=== PATIENT | female | born 1955 | race Caucasian/White ===

== ENCOUNTER → 2019-07-08 | Outpatient (CLI) | payer MEDICARE, OTHER ==
[~2019-07-08] MED LIST: CATHETER FLUSH 10 ML SYR IV PRN; REGADENOSON 0.4 MG/5 ML SYR (LEXISCAN) IV ONE
[2019-07-08 09:33] VITALS: BP 155/84
[2019-07-08 09:37] VITALS: BP 150/78
--- NOTE | 2019-07-08 15:44 | STRESS TEST ---
DATE OF SERVICE: 07/08/2019 RESTING AND POST REGADENOSON TECHNETIUM-99M TETROFOSMIN SPECT CT IMAGING ORDERING PHYSICIAN: Dr. Barajas. CLINICAL DIAGNOSES: Shortness of breath, coronary artery disease. Baseline images were carried out after injection of 10.1 mCi of technetium-99m Tetrofosmin. This was followed by 0.4 mg regadenoson and 31.2 mCi of technetium-99m Tetrofosmin for stress imaging. The electrocardiogram showed sinus rhythm at baseline and did not change significantly with the regadenoson infusion. The patient noted some jaw discomfort and stomach discomfort and a headache, which resolved in a few minutes after the cessation of the regadenoson infusion. Review of images at rest and following stress does not indicate any significant perfusion defects consistent with significant myocardial ischemia or infarction. Gated images show normal regional wall motion. Global left ventricular systolic function normal and the left ventricular ejection fraction is calculated to be 67%. Left ventricular end-diastolic volume is 24 mL. TID is absent (1.04). CONCLUSIONS: 1. No evidence of any significant myocardial ischemia or infarction on this study. 2. Normal regional wall motion. 3. Normal global left ventricular systolic function with a calculated ejection fraction of 67%. Job ID: [id number] DocumentID: [id number] Dictated Date: 07/08/2019 13:23:22 Brusher Date: 07/08/2019 15:42:41 Dictated By: YASSINE BARAJAS MD, MA, FACP, FACC,
== END ==
LOC: CARD 07:57
PROVIDERS: ATTEND Internal Medicine Cardiovascular Disease
DX: I65.23 Occlusion and stenosis of bilateral carotid arteries (principal); J44.9 Chronic obstructive pulmonary disease, unspecified; I25.10 Atherosclerotic heart disease of native coronary artery without angina pectoris
CPT/HCPCS: 78452; 93017; 93306

== ENCOUNTER → 2020-09-21 | Outpatient (CLI) | payer MEDICARE, OTHER | LOC: CARD 10:00 | PROVIDERS: ATTEND Nurse Practitioner Family | DX: I34.8 Other nonrheumatic mitral valve disorders (principal) | CPT/HCPCS: 93306 ==